=== PATIENT | female | born 1995 | race African-American/Black ===

== ENCOUNTER 2025-01-11 09:56 | Inpatient (IN) | payer BC, MEDICAID ==
[~2025-01-11] VITALS: Ht 152.4 cm; Wt 54.0 kg
[2025-01-11 10:05] VITALS: O2SAT 100
[2025-01-11] MEDS: SODIUM CHLORIDE 0.9% (SEPSIS BOLUS) IV ONE (11:09)
[2025-01-11 12:00] LABS: BASOPHILS % 0.7 % (0.0-2.0); EOSINOPHILS % 2.3 % (0.0-5.0); HEMATOCRIT. 46.3 % (36.0-48.0); HEMOGLOBIN. 15.2 g/dL (12.0-16.0); LYMPHOCYTES % 15.6 % (20.0-50.0); MEAN PLATELET VOLUME 11.6 fl (7.4-10.4); MONOCYTES % 8.6 % (2.0-8.0); NEUTROPHILS % 72.8 % (40.0-76.0); PLATELET 233 x1000/uL (130-400); RED BLOOD CELL COUNT 5.14 mill/uL (4.2-5.4); RED CELL DISTRIBUTION WIDTH 14.1 % (11.6-14.6)
[2025-01-11 12:24] LABS: HCG SCREEN NEGATIVE
[2025-01-11 12:26] LABS: CREATININE 0.9 mg/dL (0.6-1.0)
[2025-01-11 12:27] LABS: UREA NITROGEN BLOOD < 5 mg/dL (9-23)
[2025-01-11 12:28] LABS: ASPARTATE AMINOTRANSFERASE 21 IU/L (<34)
[2025-01-11 12:29] LABS: BILIRUBIN DIRECT < 0.1 mg/dL (<=3.0); BILIRUBIN TOTAL 0.5 mg/dL (0.1-1.0); PROTEIN TOTAL 8.0 g/dL (6.0-8.3)
[2025-01-11 12:32] LABS: CLARITY URINE CLEAR (CLEAR); COLOR URINE YELLOW (YELLOW); GLUCOSE URINE NEGATIVE (NEGATIVE); KETONES URINE NEGATIVE (NEGATIVE); LEUKOCYTE ESTERASE URINE 1+ (NEGATIVE); NITRITE URINE NEGATIVE (NEGATIVE); OCCULT BLOOD URINE NEGATIVE (NEGATIVE); PH URINE 7.5 (4.5-8.0); PROTEIN URINE NEGATIVE (NEGATIVE); SPECIFIC GRAVITY URINE 1.003 (1.005-1.030); UROBILINOGEN URINE 0.2 E.U./dL (0.2-1.0)
[2025-01-11 12:47] LABS: BACTERIA URINE 1+; RBC URINE 0-2 /hpf (0-2); SQUAMOUS EPITHELIAL CELL URINE 1+ /lpf (RARE/1+); YEAST URINE NONE SEEN
[2025-01-11 13:00] LABS: INFLUENZA TYPE A Presumptive Negative (Pres. Neg.); INFLUENZA TYPE B Presumptive Negative (Pres. Neg.)
[2025-01-11 13:01] LABS: RESPIRATORY SYNCYTIAL VIRUS Not Detected (Not Detectd)
[2025-01-11 13:06] LABS: INR 1.0
[2025-01-11 13:20] VITALS: TEMP 37.1; O2SAT 100
[2025-01-11 14:12] VITALS: BP 122/84; PULSE 115; RESP 18; TEMP 98.78
[2025-01-11] MEDS ORDERED: METOPROLOL TARTRATE 25MG TABLET PO SCH (15:00)
[2025-01-11] MEDS ORDERED: HYDROCODONE/ACETAMINOPHEN 5/325MG TABLET PO PRN (15:00)
[2025-01-11] MEDS ORDERED: NALOXONE HCL 0.4MG/ML VIAL IV PRN (15:00)
[2025-01-11] MEDS ORDERED: ONDANSETRON HCL 4MG/2ML INJ IV PRN (15:00)
[2025-01-11] MEDS ORDERED: DEXT 5%/0.45% NACL 1000ML 1,000 ML IV SCH (15:00)
[2025-01-11] MEDS ORDERED: ACETAMINOPHEN 325MG TABLET PO PRN (15:00)
[2025-01-11] MEDS ORDERED: CEPH500T MT (15:33)
== END 2025-01-11 16:31 | disposition home or self-care (01) | DRG 866 ==
LOC: ER 09:56 → 7WST 13:36 → EDBEDREQ 13:40 → EDBEDREQTM 13:40 → ENRESERV 14:02
PROVIDERS: ADMIT Internal Medicine; ATTEND Internal Medicine
DX: B34.9 Viral infection, unspecified (principal); N39.0 Urinary tract infection, site not specified; I10 Essential (primary) hypertension; Z20.822 Contact with and (suspected) exposure to COVID-19; E78.5 Hyperlipidemia, unspecified; D25.9 Leiomyoma of uterus, unspecified; J30.9 Allergic rhinitis, unspecified; R00.0 Tachycardia, unspecified; Z79.899 Other long term (current) drug therapy
CPT/HCPCS: 36415; 71045; 80048; 80076; 81003; 83605; 83735; 84145; 84703; 85025; 87070; 87420; 87426; 87430; 87804; 93005; 96360; 96361; 99285; J7030